=== PATIENT | female | born 1945 | race Caucasian/White ===

== ENCOUNTER 2020-04-17 08:21 | Emergency (ER) | payer MEDICARE ==
--- NOTE | 2020-04-17 09:09 | EDM.PDOC ---
ED HPI GENERAL MEDICAL PROBLEM - General Chief Complaint: ENT Problem Stated Complaint: BLOODY NOSE Time Seen by Provider: 04/17/20 08:45 Source of Information: Reports: Patient, RN, RN Notes Reviewed History Limitations: Reports: No Limitations - History of Present Illness INITIAL COMMENTS - FREE TEXT/NARRATIVE: Jessica is a 74 yo female that presents to the ED with a bloody nose for about an hour. She has had 1 previous episode about 1 year ago were she was seen in the ER in [place], [place]. She had her nose packed for 4 hours there and she states that they had to use cocaine to get the bleed to stop. They sent her home with Afrin nasal spray in case it happened ago. This morning, Jessica was brushing her teeth and she got a gush of blood out of her right nare. That is the same side as previous episode. She put the Afrin spray on a cotton ball and stuffed it in her right nare. The bleed wouldn't stop so presented to the ED. She denies any pain, nausea, lightheadedness, or dizziness. Right Temporal Headache Pain Score (Numeric/FACES): 1 - Related Data Allergies Allergy/AdvReac Type Severity Reaction Status Date / Time Penicillins Allergy Other Verified 03/02/19 10:08 sulfadiazine Allergy Other Verified 03/02/19 10:08 Home Meds: Home Meds Aspirin [Low Dose Aspirin EC] 1 tab PO DAILY 02/22/19 [History] Cholecalciferol (Vitamin D3) [Vitamin D3] 1 tab PO DAILY 02/22/19 [History] Cinnamon Bark [Cinnamon] 1,000 mg PO DAILY 02/22/19 [History] Cyanocobalamin (Vitamin B-12) [B-12] 1 tab PO DAILY 02/22/19 [History] Flaxseed Oil [Flaxseed] 1 cap PO DAILY 02/22/19 [History] Ibuprofen 400 mg PO DAILY PRN 02/22/19 [History] Lactobacillus Acidophilus [Digestive Probiotic] 1 cap PO DAILY 02/22/19 [History] Lutein 6 mg PO DAILY 02/22/19 [History] Magnesium Oxide [Magnesium] 3 tab PO BEDTIME 02/22/19 [History] Melatonin 3 mg PO BEDTIME 02/22/19 [History] [place]-3 Fatty Acids/Fish Oil [Fish Oil 1,000 mg Softgel] 1 cap PO BID 02/22/19 [History] Potassium 1 tab PO DAILY 02/22/19 [History] Psyllium Husk 1 gm PO DAILY 02/22/19 [History] Simvastatin [Zocor] 10 mg PO DAILY 02/22/19 [History] Ubidecarenone [Coenzyme Q10] 2 cap PO DAILY 02/22/19 [History] valACYclovir [Valtrex] 1 gm PO BID PRN 02/22/19 [History] Past Medical History HEENT History: Reports: Impaired Vision Dermatologic History: Reports: Eczema - Infectious Disease History Infectious Disease History: Reports: Chicken Pox, Measles, Mumps - Past Surgical History Female Surgical History: Reports: Hysterectomy Social & Family History - Tobacco Use Smoking Status *Q: Never Smoker - Caffeine Use Caffeine Use: Reports: Coffee - Recreational Drug Use Recreational Drug Use: No ED ROS ENT - Review of Systems Review Of Systems: See Below Constitutional: Reports: No Symptoms HEENT: Reports: Nosebleed Cardiovascular: Reports: No Symptoms Endocrine: Reports: No Symptoms GI/Abdominal: Reports: No Symptoms : Reports: No Symptoms Musculoskeletal: Reports: No Symptoms Skin: Reports: No Symptoms Neurological: Reports: No Symptoms Psychiatric: Reports: No Symptoms Hematologic/Lymphatic: Reports: No Symptoms Immunologic: Reports: No Symptoms ED EXAM, ENT - Physical Exam Exam: See Below Exam Limited By: No Limitations General Appearance: Alert, WD/WN, No Apparent Distress Nose: Other (vessel along the nasal septum is the source of the bleed. not currently bleeding anymore. ) Mouth/Throat: Normal Inspection, Normal Oropharynx Head: Atraumatic, Normocephalic Neck: Normal Inspection Respiratory/Chest: No Respiratory Distress, Lungs Clear, Normal Breath Sounds Cardiovascular: Regular Rate, Rhythm Neurological: Alert, Oriented Psychiatric: Normal Affect, Normal Mood Skin: Warm, Dry Lymphatic: No Adenopathy Course - Vital Signs Last Recorded V/S: Last Vital Signs Temp 97.5 F 04/17/20 08:30 Pulse 93 04/17/20 08:30 Resp 16 04/17/20 08:30 BP 152/82 H 04/17/20 08:30 Pulse Ox 98 04/17/20 08:30 Departure - Departure Time of Disposition: 09:30 Disposition: Home, Self-Care 01 Condition: Good Clinical Impression: Epistaxis not due to trauma - Discharge Information *PRESCRIPTION DRUG MONITORING PROGRAM REVIEWED*: Not Applicable *COPY OF PRESCRIPTION DRUG MONITORING REPORT IN PATIENT JULIANNE: Not Applicable Instructions: Nosebleed, [id number] Referrals: Dav Camarillo MD [Primary Care Provider] - Forms: ED Department Discharge Additional Instructions: Continue to use the Afrin nasal spray for the next 3 days. Use twice a day. Do not blow your nose or put anything in your nose. If the bleed returns, put the afrin on a cotton ball like you did and place in the nose- use the nose clamp also. Start a humidifier at home. After 3 days, start to use vaseline in the nose- it is irritated looking. Call or return to ED with any worsening of symptoms, recurrent nosebleed that you cannot get to stop bleeding, or any other concerns. Sepsis Event Note (ED) - Evaluation Sepsis Screening Result: No Definite Risk - Focused Exam Vital Signs: Vital Signs Temp Pulse Resp BP Pulse Ox 04/17/20 08:30 97.5 F 93 16 152/82 H 98 - Assessment/Plan Plan: No further bleeding here in ER. discharge home. dx: epistaxis.
== END 2020-04-17 09:40 | disposition home or self-care (01) ==
LOC: JP.ED 08:21
DX: R04.0 Epistaxis (principal); Z88.2 Allergy status to sulfonamides; Z88.0 Allergy status to penicillin; Z79.82 Long term (current) use of aspirin; Z79.899 Other long term (current) drug therapy
CPT/HCPCS: 99283

== ENCOUNTER 2021-08-29 06:28 | Day surgery (SDC) | payer MEDICARE ==
[2021-08-29] MEDS ORDERED: Sodium Chloride 0.9% 10 ML Syringe FLUSH ONE (07:00)
--- NOTE | 2021-08-29 10:21 | OR ---
DATE OF PROCEDURE: 08/29/2021 SURGEON: Krystal Farah MD POSTOPERATIVE CARE: Postoperative care will be provided mainly at the [address] [place] [address] [facility] in conjunction with [facility]. PREOPERATIVE DIAGNOSIS: Cataract, left eye. POSTOPERATIVE DIAGNOSIS: Cataract, left eye. PROCEDURE: Phacoemulsification with intraocular lens placement, left eye. ANESTHESIA: Topical and intracameral. ESTIMATED BLOOD LOSS: Minimal. COMPLICATIONS: None. PATHOLOGY SPECIMENS: None. SURGICAL FINDINGS: None. INDICATION FOR PROCEDURE: The patient is a 76-year-old female with history of a visually significant cataract in the left eye, which interfered with activities of daily living. This consisted of a nuclear sclerosis cataract. Following careful discussion of the risks, benefits and alternatives to cataract extraction with intraocular lens placement including blindness and , the patient elected to proceed, and informed, written consent was obtained prior to the procedure. DESCRIPTION OF THE PROCEDURE: The patient was previously identified, and a hermelindo placed above the left eye. All sources, including the patient, indicated that the left eye was the correct eye. The patient was subsequently taken to the operating room where standard monitors were applied. The patient was then prepped and draped in the usual sterile fashion for ophthalmic surgery. Attention was first directed at the 12 o'clock position where a paracentesis port was fashioned. Shugar solution followed by Viscoat was instilled into the eye. Attention was then directed to the 8:30 position where a triplanar incision was made in a near-clear manner using a keratome. A continuous capsulorrhexis was then made using a combination of the cystotome and Utrata forceps. Hydrodissection was achieved using a balanced salt solution, and the lens rotated nicely. Phacoemulsification was then done using a modified [id number] technique without complication. Phaco time was 12.68 CDE. The remaining cortex was removed using the irrigation/aspiration handpiece. Provisc was then instilled into the eye. A Technis lens, model DCB00, at 22.5 diopters was then placed in the capsular bag using an [place] injector. The remaining viscoelastic was removed using the irrigation/aspiration forceps. All wounds were then checked and found to be watertight. The lid speculum and drapes were removed. Maxitrol ointment was placed in the patient's left eye, and the eye was shielded. The patient tolerated the procedure well. The patient was instructed to follow up tomorrow. All needle and sponge counts were correct at the end of the procedure. There were no surgical findings. Krystal Farah MD /[id number]
== END 2021-08-29 08:24 | disposition home or self-care (01) ==
LOC: JP.SDS 06:28
PROVIDERS: ATTEND Ophthalmology
DX: H25.12 Age-related nuclear cataract, left eye (principal); E66.9 Obesity, unspecified; Z88.0 Allergy status to penicillin; Z88.2 Allergy status to sulfonamides
CPT/HCPCS: 66984; V2632

== ENCOUNTER 2021-09-05 07:28 | Day surgery (SDC) | payer MEDICARE ==
[2021-09-05] MEDS ORDERED: Sodium Chloride 0.9% 10 ML Syringe FLUSH PRN (07:40)
--- NOTE | 2021-09-05 10:46 | OR ---
DATE OF PROCEDURE: 09/05/2021 SURGEON: Krystal Farah MD POSTOPERATIVE CARE: Postoperative care will be provided mainly at the [address] [place] [address] [facility] in conjunction with [facility]. PREOPERATIVE DIAGNOSIS: Cataract, right eye. POSTOPERATIVE DIAGNOSIS: Cataract, right eye. PROCEDURE: Phacoemulsification with intraocular lens placement, right eye. ANESTHESIA: Topical and intracameral. ESTIMATED BLOOD LOSS: Minimal. COMPLICATIONS: None. PATHOLOGY SPECIMENS: None. SURGICAL FINDINGS: None. INDICATION FOR PROCEDURE: The patient is a 76-year-old female with history of a visually significant cataract in the right eye, which interfered with activities of daily living. This consisted of a nuclear sclerosis cataract. Following careful discussion of the risks, benefits and alternatives to cataract extraction with intraocular lens placement including blindness and , the patient elected to proceed, and informed, written consent was obtained prior to the procedure. DESCRIPTION OF THE PROCEDURE: The patient was previously identified, and a hermelindo placed above the right eye. All sources, including the patient, indicated that the right eye was the correct eye. The patient was subsequently taken to the operating room where standard monitors were applied. The patient was then prepped and draped in the usual sterile fashion for ophthalmic surgery. Attention was first directed at the 12 o'clock position where a paracentesis port was fashioned. Shugar solution followed by Viscoat was instilled into the eye. Attention was then directed to the 8:30 position where a triplanar incision was made in a near-clear manner using a keratome. A continuous capsulorrhexis was then made using a combination of the cystotome and Utrata forceps. Hydrodissection was achieved using a balanced salt solution, and the lens rotated nicely. Phacoemulsification was then done using a modified [id number] technique without complication. Phaco time was 9.92 CDE. The remaining cortex was removed using the irrigation/aspiration handpiece. Provisc was then instilled into the eye. A Technis lens, model DCB00, at 22.0 Diopters was then placed in the capsular bag using an [place] injector. The remaining viscoelastic was removed using the irrigation/aspiration forceps. All wounds were then checked and found to be watertight. The lid speculum and drapes were removed. Maxitrol ointment was placed in the patient's right eye, and the eye was shielded. The patient tolerated the procedure well. The patient was instructed to follow up tomorrow. All needle and sponge counts were correct at the end of the procedure. There were surgical findings. Krystal Farah MD /[id number]
== END 2021-09-05 08:35 | disposition home or self-care (01) ==
LOC: JP.SDS 07:28
PROVIDERS: ATTEND Ophthalmology
DX: H26.9 Unspecified cataract (principal)
CPT/HCPCS: 66984; V2632

== ENCOUNTER 2021-11-02 19:13 | Emergency (ER) | payer MEDICARE ==
--- NOTE | 2021-11-02 20:05 | EDM.PDOC ---
ED HPI GENERAL MEDICAL PROBLEM - General Chief Complaint: Genitourinary Problem Stated Complaint: UTI Time Seen by Provider: 11/02/21 19:45 Source of Information: Reports: Patient History Limitations: Reports: No Limitations - History of Present Illness INITIAL COMMENTS - FREE TEXT/NARRATIVE: 76-year-old female with lower pelvic pressure, increased urinary frequency and dysuria for the past day, she is also developed a small amount of hematuria today. She took some azathioprine [id number] which did not help much but also took a home UTI test which was positive. She does not have a significant history of urinary tract infections in the past, denies significant back pain, fevers or chills or nausea or vomiting. Onset: Gradual Duration: Hour(s): (Symptoms for the last 24 hours) Associated Symptoms: Reports: No Other Symptoms Middle Bladder Pain Score (Numeric/FACES): 8 - Related Data Allergies Allergy/AdvReac Type Severity Reaction Status Date / Time Penicillins Allergy Other Verified 09/04/21 08:33 sulfadiazine Allergy Other Verified 09/04/21 08:33 Home Meds: Home Meds Aspirin [Low Dose Aspirin EC] 81 mg PO DAILY 02/22/19 [History] Cholecalciferol (Vitamin D3) [Vitamin D3] 1,000 unit PO DAILY 02/22/19 [History] Magnesium Oxide [Magnesium] 600 mg PO BEDTIME 02/22/19 [History] Melatonin 3 mg PO BEDTIME 02/22/19 [History] Potassium 99 mg PO DAILY 02/22/19 [History] Simvastatin [Zocor] 10 mg PO DAILY 02/22/19 [History] Ubidecarenone [Coenzyme Q10] 200 mg PO DAILY 02/22/19 [History] valACYclovir [Valtrex] 2,000 mg PO BID PRN 02/22/19 [History] Acetaminophen 1,000 mg PO DAILY PRN 08/27/21 [History] Albuterol Sulfate [Proair Hfa] 1 - 2 puff IH ASDIRECTED PRN 08/27/21 [History] Calcium Carbonate [Calcium] 600 mg PO DAILY 09/04/21 [History] Flaxseed Oil 1 cap PO DAILY 11/02/21 [History] Past Medical History HEENT History: Reports: Cataract, Impaired Vision Cardiovascular History: Reports: High Cholesterol Respiratory History: Reports: None Gastrointestinal History: Reports: None Genitourinary History: Reports: None ORTHOTIC FITTER History: Reports: Musculoskeletal History: Reports: Arthritis, Osteoarthritis Neurological History: Reports: None Psychiatric History: Reports: None Endocrine/Metabolic History: Reports: None Hematologic History: Reports: None Immunologic History: Reports: None Oncologic (Cancer) History: Reports: None Dermatologic History: Reports: Eczema - Infectious Disease History Infectious Disease History: Reports: Chicken Pox, Measles, Mumps - Past Surgical History HEENT Surgical History: Reports: Cataract Surgery Cardiovascular Surgical History: Reports: None Respiratory Surgical History: Reports: None GI Surgical History: Reports: Colonoscopy Female Surgical History: Reports: Hysterectomy Endocrine Surgical History: Reports: None Neurological Surgical History: Reports: None Musculoskeletal Surgical History: Reports: Hip Replacement Dermatological Surgical History: Reports: None Social & Family History - Family History Family Medical History: No Pertinent Family History - Tobacco Use Tobacco Use Status *Q: Never Tobacco User - Caffeine Use Caffeine Use: Reports: Coffee ED ROS GENERAL - Review of Systems Review Of Systems: See Below Constitutional: Denies: Fever, Chills HEENT: Reports: No Symptoms Respiratory: Reports: No Symptoms GI/Abdominal: Reports: Other (Some mild to moderate lower abdominal and pelvic cramping intermittent) : Reports: Dysuria, Frequency, Hematuria, Urgency. Denies: Flank Pain Musculoskeletal: Denies: Back Pain (No significant back or flank pain) Skin: Reports: No Symptoms Neurological: Reports: No Symptoms ED EXAM, RENAL/ - Physical Exam Exam: See Below Exam Limited By: No Limitations General Appearance: Alert, No Apparent Distress Head: Atraumatic Respiratory/Chest: No Respiratory Distress, Lungs Clear Cardiovascular: Regular Rate, Rhythm, Tachycardia (Mild tachycardia) GI/Abdominal: Soft, Non-Tender Back Exam: No: CVA Tenderness (R), CVA Tenderness (L) Neurological: Alert, Oriented Course - Vital Signs Last Recorded V/S: Last Vital Signs Temp 98.6 F 11/02/21 19:31 Pulse 114 H 11/02/21 19:31 Resp 16 11/02/21 19:31 BP 172/103 H 11/02/21 19:31 Pulse Ox 96 11/02/21 19:31 - Orders/Labs/Meds Orders: Active Orders 24 hr Category Date Time Status CULTURE URINE [RM] Stat Lab 11/02/21 20:15 Received Labs: Laboratory Tests 11/02/21 Range/Units 19:54 Urine Color Brown A (YELLOW) Urine Appearance Cloudy A (CLEAR) Urine pH 6.0 (5.0-8.0) Ur Specific [place] 1.025 (1.008-1.030) Urine Protein 100 H (NEGATIVE) mg/dL Urine Glucose (UA) Negative (NEGATIVE) mg/dL Urine Ketones Negative (NEGATIVE) mg/dL Urine Occult Blood Large H (NEGATIVE) Urine Nitrite Positive H (NEGATIVE) Urine Bilirubin Negative (NEGATIVE) Urine Urobilinogen 0.2 (0.2-1.0) EU/dL Ur Leukocyte Esterase Large H (NEGATIVE) Urine RBC >100 H (0-5) Urine WBC Semi-packed H (0-5) Ur Epithelial Cells Few Amorphous Sediment Not seen Urine Bacteria Many Urine Mucus Not seen - Re-Assessments/Exams Free Text/Narrative Re-Assessment/Exam: 11/02/21 20:05 A UA was obtained and will be cultured if positive. Patient is allergic to sulfa and penicillin. 11/02/21 20:21 UA results are strongly positive with many WBCs, bacteria and nitrite positive urine. She was placed on Macrobid twice daily for 7 days and a culture was initiated. We will contact her if the culture dictates a change in treatment, or she can return anytime if worsening. Departure - Departure Time of Disposition: 20:35 Disposition: Home, Self-Care 01 Clinical Impression: UTI, Urinary tract infectious disease - Discharge Information Instructions: Urinary Tract Infection, Adult Referrals: Dav Camarillo MD [Primary Care Provider] - Forms: ED Department Discharge Care Plan Goals: Take 2 pills of antibiotic tonight, then 1 twice daily until gone. Drink lots of water, continue with azathioprine if helpful, and return anytime if worsening despite treatment such as fever, increased pain or vomiting the medication. We will be in contact with you if your urine culture dictates a change in treatment. Sepsis Event Note (ED) - Focused Exam Vital Signs: Vital Signs Temp Pulse Resp BP Pulse Ox 11/02/21 19:31 98.6 F 114 H 16 172/103 H 96 - My Orders Last 24 Hours: My Active Orders 11/02/21 20:15 CULTURE URINE [RM] Stat - Assessment/Plan Last 24 Hours: My Active Orders 11/02/21 20:15 CULTURE URINE [RM] Stat
== END 2021-11-02 20:35 | disposition home or self-care (01) ==
LOC: JP.ED 19:13
DX: N39.0 Urinary tract infection, site not specified (principal); M19.90 Unspecified osteoarthritis, unspecified site; E78.00 Pure hypercholesterolemia, unspecified; Z88.0 Allergy status to penicillin; Z88.2 Allergy status to sulfonamides; Z79.82 Long term (current) use of aspirin; Z79.899 Other long term (current) drug therapy
CPT/HCPCS: 81001; 87086; 87088; 87186; 99283

== ENCOUNTER 2022-01-18 13:38 | Emergency (ER) | payer MEDICARE | END 2022-01-18 15:10 | disposition home or self-care (01) | LOC: JP.ED 13:38 | DX: R04.0 Epistaxis (principal); E78.00 Pure hypercholesterolemia, unspecified; M19.90 Unspecified osteoarthritis, unspecified site; Z88.0 Allergy status to penicillin; Z88.8 Allergy status to other drugs, medicaments and biological substances; Z79.82 Long term (current) use of aspirin; Z79.899 Other long term (current) drug therapy | CPT/HCPCS: 99281; 99283 ==

== ENCOUNTER 2022-03-06 10:00 | Day surgery (SDC) | payer MEDICARE ==
[~2022-03-06 10:00] MED LIST: Midazolam 1 MG/ML 2 ML SDV ONE; Propofol 200 MG/20 ML SDV ONE; fentaNYL 100 MCG/2 ML SDV ONE
[2022-03-06] MEDS ORDERED: Sodium Chloride 0.9% 1,000 ML IV SCH (10:30)
== END 2022-03-06 12:58 | disposition home or self-care (01) ==
LOC: JP.SDS 10:00
PROVIDERS: ATTEND Surgery
DX: Z12.11 Encounter for screening for malignant neoplasm of colon (principal); D12.2 Benign neoplasm of ascending colon; K57.30 Diverticulosis of large intestine without perforation or abscess without bleeding
CPT/HCPCS: 45380; J2250; J2704; J3010; J7030; 88305

== ENCOUNTER 2024-05-31 13:24 | Emergency (ER) | payer MEDICARE | END 2024-05-31 15:03 | disposition home or self-care (01) | LOC: JP.ED 13:24 | DX: R04.0 Epistaxis (principal); M19.90 Unspecified osteoarthritis, unspecified site; Z90.710 Acquired absence of both cervix and uterus; Z79.899 Other long term (current) drug therapy; Z79.82 Long term (current) use of aspirin; Z88.0 Allergy status to penicillin; Z88.2 Allergy status to sulfonamides | CPT/HCPCS: 30901; 99283-25 ==

== ENCOUNTER 2025-03-31 07:51 | Day surgery (SDC) | payer MEDICARE ==
[2025-03-31] MEDS: Lactated Ringers 1,000 ML IV SCH (08:38)
[2025-03-31] MEDS ORDERED: fentaNYL 100 MCG/2 ML SDV ONE (09:10)
[2025-03-31] MEDS ORDERED: Propofol 200 MG/20 ML SDV ONE (09:10)
== END 2025-03-31 11:06 | disposition home or self-care (01) ==
LOC: JP.SDS 07:51
PROVIDERS: ATTEND Surgery
DX: Z12.11 Encounter for screening for malignant neoplasm of colon (principal); K57.30 Diverticulosis of large intestine without perforation or abscess without bleeding; Z86.0100 Personal history of colon polyps, unspecified
CPT/HCPCS: 00812; G0121; J2704; J3010; J7120